=== PATIENT | male | born 1940 | race Caucasian/White ===

== ENCOUNTER 2023-09-23 09:18 | Day surgery (SDC) | payer MEDICARE, BC ==
[~2023-09-23] VITALS: Ht 182.9 cm; Wt 99.8 kg
[2023-09-23] VITALS (16 sets, daily range): BP systolic 154–180; BP diastolic 72–97; PULSE 56–74; RESP 8–15; TEMP 98; O2SAT 95–100
[~2023-09-23 09:18] MED LIST: ATRNS BOTHNARES; DONE10TA44 PO; LIDOcaine 1% w/EPI 1:100,000 inj. MDV 50 ML VIAL ONE; cefazolin 2gm/D5W 100mL 100 ML IV ONE; cocaine 4% topical solution 4ml bottle ONE; epiNEPHrine 1 mg/ml 30ml MDV ONE; famotidine 20mg tablet PO ONE; mupirocin 2% ointment 22GM ONE; oxymetazoline 15 ML nasal spray NS ONE; ringers solution, lacted 1,000 ML IV SCH; tranexamic acid 100mg/ml inj. ONE; tranexamic acid inj. 1,000 MG in normal saline IV soln 100ML IV ONE
[2023-09-23] MEDS ORDERED: methylPREDNISolone acetate 80mg/ml inj**IM only ONE ×2 (09:37→12:50)
[2023-09-23] MEDS ORDERED: cefTAZidime 1gm inj ONE (11:35)
[2023-09-23] MEDS ORDERED: sevoflurane 250ml liquid IH ONE (12:26)
[2023-09-23] MEDS ORDERED: fentaNYL/PF 50MCG/1 ML 2ML syringe ONE (12:31)
[2023-09-23] MEDS ORDERED: midazolam 1 mg/ML 2ml injection ONE (12:35)
[2023-09-23] MEDS ORDERED: propofol inj 20 ML IV ONE (12:43)
[2023-09-23] MEDS ORDERED: mupirocin 2% nasal ointment 1gm UD NS ONE (13:00)
[2023-09-23] MEDS ORDERED: methylPREDNISolone acetate 80mg/ml inj**IM only IM ONE ×2 (13:00)
[2023-09-23] MEDS ORDERED: cocaine 4% topical solution 4ml bottle TP ONE (13:00)
[2023-09-23] MEDS ORDERED: oxymetazoline 15 ML nasal spray NS ONE (13:00)
[2023-09-23] MEDS ORDERED: epiNEPHrine 1 mg/ml 30ml MDV ENDO ONE (13:00)
[2023-09-23] MEDS ORDERED: LIDOcaine 1% W/epiNEPHrine 1:100,000 20ml vial IJ ONE (13:00)
[2023-09-23] MEDS ORDERED: ePHEDrine 50MG/ML INJ. ONE (13:02)
[2023-09-23] MEDS ORDERED: dexamethasone sod phosphate 4mg/ml inj. ONE (13:02)
[2023-09-23] MEDS ORDERED: meperidine/PF 25mg/ml syringe IV PRN ×3 (13:10)
[2023-09-23] MEDS ORDERED: ringers solution, lacted 1,000 ML IV SCH (13:10)
[2023-09-23] MEDS ORDERED: hydrALAZINE 20mg/ml inj. IV PRN (13:10)
[2023-09-23] MEDS ORDERED: morphine 2 MG/ML inj. syringe IV PRN (13:10)
[2023-09-23] MEDS ORDERED: ondansetron/PF 4mg/2ml inj IV PRN (13:10)
[2023-09-23] MEDS ORDERED: morphine 4 MG/ML inj SYRINge IV PRN (13:10)
[2023-09-23] MEDS ORDERED: ondansetron/PF 4mg/2ml inj ONE (14:04)
--- NOTE | 2023-09-23 14:18 | NUR ---
Received from OR via [facility] , accompanied by Anesthesiologist CLEMENTINA and report given by Anesthesiolgist. PT HAS COTTONOIDS TO BOTH NOSTRILS, TAPED TO CHEEKS. NO DRAINAGE. MONITOR SR. SAO2 99% ON 6 LPM PER MASK. B/P IS ELEVATED, BUT MDS ARE AWARE. Addendum: 09/23/23 at 1613 by Mare Coyne RN Amended: Links added.
[2023-09-23] MEDS: labetalol 20mg/4ml (5mg/ml) syringe IV PRN ×2 (14:34→14:48)
[2023-09-23] MEDS ORDERED: salt irrigation nasal spray 45 ML SPRAY NS PRN (15:55)
--- NOTE | 2023-09-23 16:28 | NUR ---
PT GRADUALLY MORE AWAKE AND ALERT. INITIAL B/P ELEVATED - MEDICATED W/ LABATELOL [address] TERRAZAS AND DR. PENNINGTON AWARE AND MADE BEDSIDE VISITS. DR. PENNINGTON STATES PT MAY BE DC'D WITH WHATEVER B/P DR. TERRAZAS CONSIDERS OK FROM A CARDIOVASCULAR STANDPOINT LONG PT IS NOT BLEEDING. DR. TERRAZAS STATES PT MAY BE DC'D W/ B/P 160/ANY DIASTOLIC. PT GIVEN ADDITONAL 5 MG LABATELOL AND APRESOLINE [address] TERRAZAS'S INSTRUCTION. B/P STABILIZED IN THE 160'S/80'S. BOTH MD'S NOTIFIED OF THIS AT 1620 AND 1625[address] DR. PENNINGTON STATES HE DIDN'T THINK WE'D GET IT THAT LOW - AND STATES PT MAY USE HIS CPAP. DR. TERRAZAS GAVE OK TO DC. COTTONOIDS REMOVED AT 1518 - SCANT SANGUINOUS DG. PT HAD SMALL AMOUNT SANGUINOUS DG ON MUSTACHE DRESSING DURING LAST 30 MIN. PT VERBALIZED UNDERSTANDING OF DC INSTRUCTIONS AND WRITTEN INSTRUCTION SHEET GIVEN TO PT. INSTRUCTED , MICHAEL, AT TIME OF DC - WILL CHANGE 4X4 AND OBSERVE FOR EXCESS DRAINAGE. MONITOR SR, W/ SLIGHT SLOWING FOLLOWING LABETELOL DOSES. PT DENIES ANY PAIN. Addendum: 09/23/23 at 1714 by Mare Coyne RN Amended: Links added. Addendum: 09/23/23 at 1723 by Mare Coyne RN PT WAS ABLE TO URINATE - 500 ML CLEAR YELLOW URINE. DISCHARGE TO PER WC W/OUT INCIDENT.
== END 2023-09-23 16:28 | disposition home or self-care (01) ==
LOC: PAS 09:18
PROVIDERS: ATTEND Otolaryngology
DX: J34.2 Deviated nasal septum (principal); J34.3 Hypertrophy of nasal turbinates; J32.2 Chronic ethmoidal sinusitis; G47.30 Sleep apnea, unspecified; I10 Essential (primary) hypertension; Z87.891 Personal history of nicotine dependence; Z98.890 Other specified postprocedural states; Z79.899 Other long term (current) drug therapy; Z85.828 Personal history of other malignant neoplasm of skin
CPT/HCPCS: 30140; 30520; 31254; 61782; 82948; 93005; A6402; J0171; J0360; J0690; J0713; J1040; J1100; J2250; J2405; J2704; J3010; J3490; J7030; J7050; J7120; Z7506; Z7508; Z7512; A4618; A6449; A7000

== ENCOUNTER 2023-10-21 06:15 | Day surgery (SDC) | payer MEDICARE, BC ==
[~2023-10-21] VITALS: Ht 182.9 cm; Wt 99.8 kg
[2023-10-21] VITALS (16 sets, daily range): BP systolic 128–178; BP diastolic 78–105; PULSE 55–80; RESP 10–22; TEMP 97.4; O2SAT 92–98
[~2023-10-21 06:15] MED LIST changes: -LIDOcaine 1% w/EPI 1:100,000 inj. MDV 50 ML VIAL ONE; +LISI10TA27 PO; -cocaine 4% topical solution 4ml bottle ONE; -epiNEPHrine 1 mg/ml 30ml MDV ONE; -mupirocin 2% ointment 22GM ONE; -tranexamic acid 100mg/ml inj. ONE
[2023-10-21] MEDS ORDERED: tranexamic acid 100mg/ml inj. ONE (06:39)
[2023-10-21] MEDS ORDERED: LIDOcaine 1% w/EPI 1:100,000 inj. MDV 50 ML VIAL ONE (06:39)
[2023-10-21] MEDS ORDERED: mupirocin 2% ointment 22GM ONE (06:39)
[2023-10-21] MEDS ORDERED: epiNEPHrine 1 mg/ml 30ml MDV ONE (06:39)
[2023-10-21] MEDS ORDERED: cocaine 4% topical solution 4ml bottle ONE (06:39)
[2023-10-21] MEDS ORDERED: oxymetazoline 15 ML nasal spray NS ONE (06:40)
[2023-10-21] MEDS ORDERED: fentaNYL/PF 50MCG/1 ML 2ML syringe ONE (07:48)
[2023-10-21] MEDS ORDERED: sevoflurane 250ml liquid IH ONE (08:10)
[2023-10-21] MEDS ORDERED: propofol inj 20 ML IV ONE (08:58)
[2023-10-21] MEDS ORDERED: glycopyrrolate 0.2mg/ml inj ONE (08:58)
[2023-10-21] MEDS ORDERED: dexamethasone sod phosphate 4mg/ml inj. ONE (08:58)
[2023-10-21] MEDS ORDERED: ondansetron/PF 4mg/2ml inj ONE (08:58)
[2023-10-21] MEDS ORDERED: methylPREDNISolone acetate 80mg/ml inj**IM only IM ONE (09:11)
[2023-10-21] MEDS ORDERED: methylPREDNISolone acetate 80mg/ml inj**IM only ONE (09:21)
[2023-10-21] MEDS ORDERED: HYDROmorphone/PF 0.2 MG/ML SYRINGE IV PRN ×2 (09:45)
[2023-10-21] MEDS ORDERED: hydrALAZINE 20mg/ml inj. IV PRN (09:45)
[2023-10-21] MEDS ORDERED: morphine 2 MG/ML inj. syringe IV PRN (09:45)
[2023-10-21] MEDS ORDERED: ringers solution, lacted 1,000 ML IV SCH (09:45)
[2023-10-21] MEDS ORDERED: ondansetron/PF 4mg/2ml inj IV PRN (09:45)
[2023-10-21] MEDS ORDERED: mupirocin 2% nasal ointment 1gm UD NS ONE (09:50)
[2023-10-21] MEDS ORDERED: salt irrigation nasal spray 45 ML SPRAY NS PRN (09:50)
[2023-10-21] MEDS: labetalol 20mg/4ml (5mg/ml) syringe IV PRN ×2 (09:54→10:14)
== END 2023-10-21 10:58 | disposition home or self-care (01) ==
LOC: PAS 06:15
PROVIDERS: ATTEND Otolaryngology
DX: J32.8 Other chronic sinusitis (principal); J33.8 Other polyp of sinus; G47.30 Sleep apnea, unspecified; I10 Essential (primary) hypertension; Z87.891 Personal history of nicotine dependence; K72.90 Hepatic failure, unspecified without coma; Z85.828 Personal history of other malignant neoplasm of skin; Z79.899 Other long term (current) drug therapy; Z94.7 Corneal transplant status; Z98.890 Other specified postprocedural states
CPT/HCPCS: 31259; 31267; 31276; 61782; 82948; 87070; 87075; A6402; J0171; J0360; J0690; J1040; J1100; J2405; J2704; J3010; J3490; J7030; J7050; J7120; Z7506; Z7508; Z7512; 87186; A4618; A6449; A7000